=== PATIENT | female | born 1985 | race Two or more races ===

== ENCOUNTER 2018-11-03 11:06 | Inpatient (IN) | payer OTHER ==
[2018-11-03 12:01] LABS: ABS Lymphocytes 1.9 10^3/ul (1.0-4.8); ABS Monocytes 0.6 10^3/ul (0-0.8); Eosinophil % 0.3 %; Hematocrit 36 % (35-47); Hemoglobin 12.5 g/dL (12.0-16.0); Lymphocyte % 17.9 %; Mean Corpuscular HGB Conc 35 g/dL (31-36); Mean Corpuscular Hemoglobin 33 pg (27-31); Mean Corpuscular Volume 95 fL (80-97); Mean Platelet Volume 8.7 fL (7.4-10.4); Platelet Count 234 10^3/uL (150-450); Red Cell Distribution Width 13 % (10-15); White Blood Count 10.5 10^3/uL (3.5-10.8)
--- NOTE | 2018-11-03 12:46 | HP ---
General Information - Reason for Visit at 37 4/7 weeks EGA with growth in 4% ile for past few weeks, increasing high S/D ratio on doppler studies, prolonged bradycardic episode during office NST, footling breech presentation and anterior placenta. Patient declines external cepahalic version after counseling and also desires permanent surgical sterilization via tubal ligation. - General Information Maternal Age: 33 Grav: 2 Para: 1 SAB: 0 IEA: 0 Estimated Due Date: 11/21/18 Maternal Blood Type and Rh: A Positive - Results this Serology/RPR Result: Non-Reactive Rubella Result: Immune HBsAg Result: Negative HIV Result: Negative GBS Culture Result: Negative Past Medical History Delivery History: See Records Pertinent Past Medical History: See Records Past Medical History Comment: Migraine Headaches Pertinent Past Surgical History: See Records Past Surgical History Comment: Appendectomy 2011 Pertinent Family History: See Records - Antepartal Records Antepartal Records: Reviewed, Complicated by: - growth restriction 4 %ile, prolonged deceleration,. Breech presentation Review of Systems Constitutional: Comfortable CV Complaint: No Respiratory: Shortness of Breath: No Gastrointestinal: No Nausea/Vomiting, Normal Bowel Movement Genitourinary: No Dysuria, No Bleeding, No Leaking Fluid Musculoskeletal: No Complaint, No Epigastric Pain, Contractions - Q 4 minutes Neurological: No Headache, No Visual Changes Movement: Normal Exam Allergies/Adverse Reactions: Allergies No Known Allergies Allergy (Verified 11/03/18 11:32) Temp 98.8 BP 112/80 P 73 RR 18 POx 100% Ra Lab Values - Entire Visit: Laboratory Tests 11/03/18 11/03/18 11:34 11:34 WBC 10.5 RBC 3.80 Hgb 12.5 Hct 36 MCV 95 MCH 33 H MCHC 35 RDW 13 Plt Count 234 MPV 8.7 Neut % (Auto) 76.0 Lymph % (Auto) 17.9 Scurry % (Auto) 5.5 Eos % (Auto) 0.3 Baso % (Auto) 0.3 Absolute Neuts (auto) 8.0 H Absolute Lymphs (auto) 1.9 Absolute Monos (auto) 0.6 Absolute Eos (auto) 0.0 Absolute Basos (auto) 0.0 Absolute Nucleated RBC 0.0 Nucleated RBC % 0.0 Blood Type A Positive Antibody Screen Negative - Measurements Height: 5 ft 5.75 in Weight: 180 lb Weight in lbs: 180.904172 Body Mass Index (BMI): 29.2 Pre- Weight: 156 lb Weight Gained This : 24 lbs and 0 ozs - Exam Breast: Breast Exam Deferred CVA: No CVA Tenderness Extremities: No Edema Heart: Normal Rhythm/Heart Sounds HEENT: No Significant Findings Lungs: Clear Bilaterally Rectal: Rectal Exam Deferred Reflexes: DTR 2+ Thyroid: No Thyromegaly - Abdominal Exam Abdomen Exam: Non-Tender, Fundal Height Consistent with Dates - Ultrasound/Biophysical Profile Ultrasound Status: Not Done Targeted Exam Findings See L&D Outpatient Visit Provider Note for Findings: N/A Cervical Exam: 4cm Effacement: 90% Station: -1 Presenting Part: Breech Membrane Status: Intact Bleeding/Discharge: None EFM Findings - External Monitor Findings Baseline Heart Rate: 140 External Monitor Findings: Accelerations Present Contractions: Regular, Mild, >90 Seconds Assessment/Plan - Assessment 37 4/7 weeks, Labor, Breech with growth restriction and desires sterilization. - Obstetrical Risk Factors Obstetrical Risk Factors: IUGR, Breech - Plan Plan: IV Hydration, Antibiotic Prophylaxis, C/S Delivery - Section and bilateral tubal ligation - Date/Time of Admission Date of Admission: 11/03/18
[2018-11-03] MEDS ORDERED: Lactated Ringers 1000 ML Bag* 1,000 ML IV ONE (13:00)
[2018-11-03] MEDS ORDERED: Buffered Lidocaine 1% SYRIN* 1 ML/SYRINGE INTRADERM ONE (13:00)
[2018-11-03] MEDS ORDERED: ceFOXitin 2 GM IVPREMIX* 2 GM/50 ML BAG IVPB ONE (13:00)
[2018-11-03] MEDS ORDERED: Lactated Ringers 1000 ML Bag* 1,000 ML IV SCH ×2 (13:00→16:00)
[2018-11-03] MEDS ORDERED: Sodium Citrate/Citric Acid* 15 ML UDC PO ONE (13:00)
[2018-11-03] MEDS ORDERED: Morphine PF AMP (0.5MG/ML)* 5 MG/10 ML AMP ONE (13:59)
[2018-11-03] MEDS ORDERED: OXYTOCIN* 10 UNITS/ML 1 ML VIAL ONE (14:00)
[2018-11-03] MEDS ORDERED: Phenylephrine 40 MCG/ML SYRINGE ONE (15:13)
[2018-11-03] MEDS ORDERED: Ondansetron INJ* 2 MG/ML VIAL ONE (15:13)
[2018-11-03] MEDS ORDERED: Ibuprofen TAB* 600 MG PO PRN (15:43)
[2018-11-03] MEDS ORDERED: Witch Hazel PAD* JAR TOPICAL PRN (15:43)
[2018-11-03] MEDS ORDERED: Dibucaine 1% 28.35 GM TUBE PR PRN (15:43)
[2018-11-03] MEDS ORDERED: Glycerin ADULT SUPP PR PRN (15:43)
[2018-11-03] MEDS ORDERED: Acetaminophen TAB* 325 MG PO PRN (15:43)
[2018-11-03] MEDS ORDERED: Naloxone* 0.4 MG/ML 1 ML VIAL IV PRN ×2 (15:48→15:51)
[2018-11-03] MEDS ORDERED: Ondansetron INJ* 2 MG/ML VIAL IV PRN (15:48)
[2018-11-03] MEDS ORDERED: Nalbuphine* 10 MG/ML 1 ML VIAL IV PRN (15:48)
[2018-11-03] MEDS: Simethicone TAB* 80 MG TAB.CHEW PO SCH ×2 (18:30→20:59)
[2018-11-03] MEDS: Ibuprofen TAB* 400 MG PO SCH (18:30)
[2018-11-03] MEDS: oxyCODONE/Acetamin 5/325 MG* TAB PO PRN ×2 (18:30→22:34)
[2018-11-03] MEDS: Docusate CAP* 100 MG PO SCH (20:59)
[2018-11-04] MEDS: Ibuprofen TAB* 400 MG PO SCH ×2 (00:38→18:04)
[2018-11-04] MEDS: oxyCODONE/Acetamin 5/325 MG* TAB PO PRN ×5 (02:46→23:49)
[2018-11-04] MEDS ORDERED: Zolpidem TAB* 5 MG PO PRN (06:23)
[2018-11-04 06:56] LABS: ABS Eosinophils 0.1 10^3/ul (0-0.6); ABS Lymphocytes 2.4 10^3/ul (1.0-4.8); ABS Monocytes 0.9 10^3/ul (0-0.8); ABS Neutrophils 8.7 10^3/ul (1.5-7.7); Eosinophil % 0.4 %; Hematocrit 37 % (35-47); Hemoglobin 12.5 g/dL (12.0-16.0); Lymphocyte % 19.9 %; Mean Corpuscular HGB Conc 34 g/dL (31-36); Mean Corpuscular Hemoglobin 32 pg (27-31); Mean Corpuscular Volume 95 fL (80-97); Mean Platelet Volume 7.6 fL (7.4-10.4); Platelet Count 218 10^3/uL (150-450); Red Blood Count 3.87 10^6 /uL (3.70-4.87); Red Cell Distribution Width 13 % (10-15); White Blood Count 12.2 10^3/uL (3.5-10.8)
[2018-11-04] MEDS: Ibuprofen TAB* 600 MG PO PRN ×3 (07:24→20:29)
[2018-11-04] MEDS ORDERED: Ferrous Gluconate TAB* 324 MG TAB PO SCH (09:00)
[2018-11-04] MEDS: Docusate CAP* 100 MG PO SCH ×3 (10:22→20:30)
[2018-11-04] MEDS: Simethicone TAB* 80 MG TAB.CHEW PO SCH ×4 (10:22→20:30)
[2018-11-05] MEDS: oxyCODONE/Acetamin 5/325 MG* TAB PO PRN ×5 (04:13→21:29)
[2018-11-05] MEDS: Ibuprofen TAB* 600 MG PO PRN ×3 (06:31→17:41)
[2018-11-05] MEDS: Simethicone TAB* 80 MG TAB.CHEW PO SCH ×3 (08:57→17:40)
[2018-11-05] MEDS: Docusate CAP* 100 MG PO SCH ×3 (08:57→21:29)
[2018-11-05] MEDS ORDERED: Calcium Carbonate CHEW TAB* 500 MG (TUMS) ONE (10:23)
[2018-11-05] MEDS: Calcium Carbonate CHEW TAB* 500 MG (TUMS) PO SCH ×2 (10:25→21:29)
[2018-11-06] MEDS: oxyCODONE/Acetamin 5/325 MG* TAB PO PRN ×4 (04:20→20:20)
[2018-11-06] MEDS: Docusate CAP* 100 MG PO SCH ×3 (08:21→20:20)
[2018-11-06] MEDS: Simethicone TAB* 80 MG TAB.CHEW PO SCH ×3 (08:22→12:16)
[2018-11-06] MEDS: Calcium Carbonate CHEW TAB* 500 MG (TUMS) PO SCH (09:48)
--- NOTE | 2018-11-06 10:46 | OP ---
DATE OF OPERATION: 11/03/18 - ROOM #117 DATE OF : 85 SURGEON: Timbo Prater MD. FERMENTER HELPER: Dr. Jerry. ANESTHESIA: Spinal. PRE-OP DIAGNOSES: at 37 weeks with intrauterine growth restriction at the 4th percentile, breech presentation, in labor. Also, the patient desires permanent sterilization POST-OP DIAGNOSIS: at 37 weeks with an intrauterine growth restriction at the 4th percentile, breech presentation, in labor. OPERATIVE PROCEDURE: Primary low transverse section with a bilateral tubal ligation via fimbriectomy. ESTIMATED BLOOD LOSS: 600 cc. SPECIMENS SENT TO PATHOLOGY: Cord blood and cord gasses and tubal fimbriae. URINE OUTPUT: Clear. FLUIDS: She received 1800 cc of IV crystalloid fluid. FINDINGS: Findings was delivery of a viable female infant weighing 2397 g with Apgars of 2 and 9 over clear amniotic fluid via breech extraction. The placenta was sent to pathology. The uterus, adnexa, bowel, and bladder were all within normal limits. There were no complications. DESCRIPTION OF PROCEDURE: The patient was taken to the operating room, where she was identified. She was placed on the operating table, where spinal anesthesia was obtained without difficulty. She was placed in a supine position with a leftward tilt, prepped and draped in normal sterile fashion. A Pfannenstiel skin incision was made with a knife and carried through to the underlying layer of fascia. The fascia was nicked in the midline and extended laterally with curved Vizacino scissors. The fascia was then grasped superiorly and inferiorly with Anthony clamps and dissected off sharply from the rectus muscle. The rectus muscle was in the midline bluntly. The peritoneum was identified, grasped with pickups, entered sharply with Metzenbaum scissors, and extended laterally bluntly. A bladder blade was placed into the patient's abdomen. A bladder flap was created using Metzenbaum scissors, over which the bladder blade was then reinserted. A low transverse uterine incision was made with a knife, extended laterally with bandage scissors. The 's breech was grasped and the was then delivered through a breech extraction. The cord was clamped and cut and the was handed off to the awaiting boiler plant worker. Cord gasses and cord bloods were obtained. The placenta was removed manually. The uterus was then exteriorized, cleared off all clot and debris using moist laparotomy sponges. The uterine incision was then closed using 0 Polysorb suture in a running locked fashion with a second imbricating layer of 0 Polysorb suture with good hemostasis noted. A bilateral tubal ligation via fimbriectomy was done in usual fashion with 3-0 polysorb sutures. The uterus was returned to the patient's abdomen. The gutters were then cleared of all clots and debris using moist laparotomy sponges. All the sponge and instruments were removed from the patient's abdomen. The peritoneum was then closed using 3-0 Polysorb suture in a running fashion. The fascia was closed using 0 Polysorb suture in a running fashion, and the skin was closed with a 4-0 Monocryl subcuticular stitch. The patient tolerated the procedure well. Sponge, lap and needle counts were correct x2. She was then transferred to recovery room area in stable condition. [id number]/[facility] #: [id number] MTDD
[2018-11-06] MEDS: Ibuprofen TAB* 600 MG PO PRN (12:16)
[2018-11-06 21:14] VITALS: BP 158/76
== END 2018-11-06 20:41 | disposition home or self-care (01) | DRG 785 ==
LOC: MCHOBOUT 11:06 → MCHOB 12:28
PROVIDERS: ADMIT Obstetrics & Gynecology; ATTEND Obstetrics & Gynecology
PROC: 0UB70ZZ Excision of Bilateral Fallopian Tubes, Open Approach (ICD-10-PCS; 2018-11-03)
PROC: 4A1HXCZ Monitoring of Products of Conception, Cardiac Rate, External Approach (ICD-10-PCS; 2018-11-03)
PROC: 10D00Z1 Extraction of Products of Conception, Low, Open Approach (ICD-10-PCS; principal; 2018-11-03 14:11)
DX: O32.1XX0 Maternal care for breech presentation, not applicable or unspecified (principal); O36.5930 Maternal care for other known or suspected poor fetal growth, third trimester, not applicable or unspecified; Z3A.37 37 weeks gestation of pregnancy; Z37.0 Single live birth; Z30.2 Encounter for sterilization
CPT/HCPCS: 36415; 85025; 86850; 86900; 86901; 88302; 88307; A9270-GY; J0694; J2300; J2405; J2590